=== PATIENT | male | born 1995 | race Caucasian/White ===

== ENCOUNTER 2025-02-10 23:32 | Emergency (ER) | payer MEDICAID ==
[~2025-02-10] VITALS: Ht 175.3 cm; Wt 113.0 kg
[2025-02-10 23:40] VITALS: O2SAT 100
[2025-02-11] MEDS: PREDNISONE 20MG TABLET PO ONE (01:05)
[2025-02-11 01:19] LABS: CREATININE 0.9 mg/dL (0.6-1.3); UREA NITROGEN BLOOD 11 mg/dL (9-23)
[2025-02-11 01:21] LABS: ASPARTATE AMINOTRANSFERASE 22 IU/L (<34); BILIRUBIN TOTAL 0.5 mg/dL (0.1-1.0); PROTEIN TOTAL 7.2 g/dL (6.0-8.3)
[2025-02-11] MEDS ORDERED: BO1 TP (01:36)
[2025-02-11] MEDS ORDERED: P50 MT (01:36)
[2025-02-11 01:50] VITALS: BP 125/86; PULSE 78; RESP 14; TEMP 36.8; O2SAT 100
== END 2025-02-11 02:05 | disposition home or self-care (01) ==
LOC: ER 02-11 00:06
DX: L29.9 Pruritus, unspecified (principal); R21 Rash and other nonspecific skin eruption
CPT/HCPCS: 99283; 80053; 36415; J7512

== ENCOUNTER 2025-02-16 22:49 | Emergency (ER) | payer MEDICAID ==
[~2025-02-16] VITALS: Ht 170.2 cm; Wt 109.0 kg
[~2025-02-16 22:49] MED LIST: BO1 TP; P50 MT
[2025-02-16 23:17] VITALS: O2SAT 99
[2025-02-17] MEDS ORDERED: ONDANSETRON 4MG ODT PO ONE (00:30)
[2025-02-17] MEDS ORDERED: KETOROLAC 15MG/ML VIAL IM ONE (00:30)
[2025-02-17] MEDS ORDERED: IBUP-2029 MT (00:34)
[2025-02-17] MEDS ORDERED: ONDA-239 PO (00:34)
[2025-02-17] MEDS ORDERED: LOPE2TAB26 MT (00:34)
[2025-02-17 01:08] VITALS: BP 146/95; PULSE 69; RESP 18; TEMP 36.8; O2SAT 99
== END 2025-02-17 01:09 | disposition home or self-care (01) ==
LOC: ER 22:49
DX: R19.7 Diarrhea, unspecified (principal); Z79.899 Other long term (current) drug therapy
CPT/HCPCS: 99283

== ENCOUNTER 2025-02-18 10:54 | Emergency (ER) | payer OTHER, MEDICAID ==
[~2025-02-18] VITALS: Ht 177.8 cm; Wt 113.3 kg
[~2025-02-18 10:54] MED LIST changes: +IBUP-2029 MT; +LOPE2TAB26 MT; +ONDA-239 PO
[2025-02-18 10:57] VITALS: O2SAT 99
[2025-02-18 11:01] VITALS: BP 143/82; PULSE 67; RESP 18; TEMP 36.8; O2SAT 99
[2025-02-18 11:54] LABS: BASOPHILS % 0.5 % (0.0-2.0); EOSINOPHILS % 2.5 % (0.0-5.0); HEMATOCRIT. 49.0 % (42.0-52.0); HEMOGLOBIN. 16.7 g/dL (14.0-18.0); LYMPHOCYTES % 25.8 % (20.0-50.0); MEAN PLATELET VOLUME 7.6 fl (7.4-10.4); MONOCYTES % 6.5 % (2.0-8.0); NEUTROPHILS % 64.7 % (40.0-76.0); PLATELET 322 x1000/uL (130-400); RED BLOOD CELL COUNT 5.38 mill/uL (4.7-6.1); RED CELL DISTRIBUTION WIDTH 13.3 % (11.6-14.6)
[2025-02-18 12:06] LABS: CLARITY URINE CLEAR (CLEAR); COLOR URINE YELLOW (YELLOW); GLUCOSE URINE NEGATIVE (NEGATIVE); KETONES URINE NEGATIVE (NEGATIVE); LEUKOCYTE ESTERASE URINE NEGATIVE (NEGATIVE); NITRITE URINE NEGATIVE (NEGATIVE); OCCULT BLOOD URINE NEGATIVE (NEGATIVE); PH URINE 8.0 (4.5-8.0); PROTEIN URINE NEGATIVE (NEGATIVE); SPECIFIC GRAVITY URINE 1.021 (1.005-1.030); UROBILINOGEN URINE 0.2 E.U./dL (0.2-1.0)
[2025-02-18 12:07] LABS: CREATININE 0.9 mg/dL (0.6-1.3); UREA NITROGEN BLOOD 13 mg/dL (9-23)
== END 2025-02-18 14:57 | disposition left against medical advice (07) ==
LOC: ER 10:54
DX: R10.9 Unspecified abdominal pain (principal); Z53.21 Procedure and treatment not carried out due to patient leaving prior to being seen by health care provider
CPT/HCPCS: 36415; 80048; 81003; 85025; 99283

== ENCOUNTER 2025-04-17 00:48 | Emergency (ER) | payer OTHER, MEDICAID ==
[~2025-04-17] VITALS: Ht 177.8 cm; Wt 113.0 kg
[~2025-04-17 00:48] MED LIST changes: +IBUP-1455 MT; -IBUP-2029 MT
[2025-04-17 01:20] VITALS: O2SAT 98
[2025-04-17 02:12] LABS: BASOPHILS % 0.5 % (0.0-2.0); EOSINOPHILS % 12.7 % (0.0-5.0); HEMATOCRIT. 43.9 % (42.0-52.0); HEMOGLOBIN. 15.0 g/dL (14.0-18.0); LYMPHOCYTES % 31.9 % (20.0-50.0); MEAN PLATELET VOLUME 8.0 fl (7.4-10.4); MONOCYTES % 9.9 % (2.0-8.0); NEUTROPHILS % 45.0 % (40.0-76.0); PLATELET 243 x1000/uL (130-400); RED BLOOD CELL COUNT 4.93 mill/uL (4.7-6.1); RED CELL DISTRIBUTION WIDTH 13.0 % (11.6-14.6)
[2025-04-17 02:36] LABS: CREATININE 0.8 mg/dL (0.6-1.3)
[2025-04-17 02:37] LABS: TROPONIN I HIGH SENSITIVITY 11 ng/L (3.0-53); UREA NITROGEN BLOOD 11 mg/dL (9-23)
[2025-04-17] MEDS: HYDROXYZINE 25MG TABLET PO ONE (02:38)
[2025-04-17] MEDS: IBUPROFEN 600MG TABLET PO ONE (02:41)
[2025-04-17 04:38] LABS: TROPONIN I HIGH SENSITIVITY 13 ng/L (3.0-53)
[2025-04-17 04:57] VITALS: BP 134/81; PULSE 57; RESP 16; TEMP 36.7; O2SAT 98
== END 2025-04-17 05:01 | disposition home or self-care (01) ==
LOC: ER 01:11
DX: R07.2 Precordial pain (principal); R06.02 Shortness of breath; F41.9 Anxiety disorder, unspecified; Z79.899 Other long term (current) drug therapy
CPT/HCPCS: 36415; 71045; 80048; 84484; 85025; 85379; 93005; 99285